=== PATIENT | male | born 1950 | race Caucasian/White ===

== ENCOUNTER 2021-12-19 08:55 | Emergency (ER) | payer MEDICAID ==
[~2021-12-19] VITALS: Ht 172.7 cm; Wt 106.6 kg
[2021-12-19 08:55] VITALS: BP_SYST 129
[2021-12-19] MEDS ORDERED: MORPHINE 4 MG INJ. 4 MG/ML VIAL IM ONE (09:15)
[2021-12-19] MEDS ORDERED: TRAM50TA PO (10:41)
[2021-12-19 10:50] VITALS: BP_SYST 124
== END 2021-12-19 10:50 | disposition home or self-care (01) ==
LOC: SED 08:55
DX: S22.32XA Fracture of one rib, left side, initial encounter for closed fracture (principal); W01.198A Fall on same level from slipping, tripping and stumbling with subsequent striking against other object, initial encounter; Y93.89 Activity, other specified; Y92.89 Other specified places as the place of occurrence of the external cause; Y99.8 Other external cause status
CPT/HCPCS: 99284; 71100; 72040; 96372; J2270